=== PATIENT | female | born 1990 | race African-American/Black ===

== ENCOUNTER 2018-11-27 22:56 | Emergency (ER) | payer OTHER ==
[~2018-11-27] VITALS: Ht 154.9 cm; Wt 84.9 kg
[2018-11-28 00:07] VITALS: BP 125/79
== END 2018-11-28 00:14 | disposition home or self-care (01) ==
LOC: ER 23:13
DX: L02.31 Cutaneous abscess of buttock (principal); I10 Essential (primary) hypertension; F17.210 Nicotine dependence, cigarettes, uncomplicated; F12.10 Cannabis abuse, uncomplicated; Z98.890 Other specified postprocedural states
CPT/HCPCS: 99283

== ENCOUNTER 2018-12-01 00:25 | Emergency (ER) | payer MEDICAID, OTHER ==
[~2018-12-01] VITALS: Ht 157.5 cm; Wt 82.0 kg
[2018-12-01] MEDS ORDERED: HYDROCODONE/ACETAMINOPHEN 5/325MG TABLET PO ONE (00:45)
[2018-12-01] MEDS ORDERED: LIDOCAINE HCL/PF 1% 10 MG/ML 5ML VIAL IJ ONE (00:45)
[2018-12-01] MEDS ORDERED: LORAZEPAM 1MG TABLET PO ONE (02:15)
[2018-12-01 04:17] VITALS: BP 134/71
== END 2018-12-01 04:18 | disposition home or self-care (01) ==
LOC: ER 00:57
DX: L02.31 Cutaneous abscess of buttock (principal); F12.10 Cannabis abuse, uncomplicated; F17.200 Nicotine dependence, unspecified, uncomplicated; I10 Essential (primary) hypertension; Z98.890 Other specified postprocedural states
CPT/HCPCS: 10060; 99283; J3490

== ENCOUNTER 2018-12-04 00:37 | Emergency (ER) | payer MEDICAID ==
[~2018-12-04] VITALS: Ht 157.5 cm; Wt 84.0 kg
[2018-12-04 01:54] VITALS: BP 124/87
== END 2018-12-04 02:00 | disposition left against medical advice (07) ==
LOC: ER 00:37
DX: Z53.21 Procedure and treatment not carried out due to patient leaving prior to being seen by health care provider (principal)

== ENCOUNTER 2018-12-04 14:16 | Emergency (ER) | payer OTHER, MEDICAID ==
[~2018-12-04] VITALS: Ht 157.5 cm; Wt 84.0 kg
[2018-12-04 14:36] VITALS: BP 102/77
== END 2018-12-04 15:41 | disposition home or self-care (01) ==
LOC: ER 14:16
DX: Z48.00 Encounter for change or removal of nonsurgical wound dressing (principal)
CPT/HCPCS: 99282

== ENCOUNTER 2021-09-18 19:16 | Emergency (ER) | payer MEDICAID, OTHER ==
[~2021-09-18] VITALS: Ht 160 cm; Wt 76.0 kg
[2021-09-18 21:00] VITALS: BP 122/80
[2021-09-18] MEDS ORDERED: TRAMADOL 50MG TABLET PO ONE (21:00)
[2021-09-18] MEDS ORDERED: IBUPROFEN 600MG TABLET PO ONE (21:00)
== END 2021-09-18 22:09 ==
LOC: ER 19:16
DX: T20.20XA Burn of second degree of head, face, and neck, unspecified site, initial encounter (principal); T21.29XA Burn of second degree of other site of trunk, initial encounter; T22.10XA Burn of first degree of shoulder and upper limb, except wrist and hand, unspecified site, initial encounter; T31.0 Burns involving less than 10% of body surface; X11.8XXA Contact with other hot tap-water, initial encounter; Y93.89 Activity, other specified; Y92.89 Other specified places as the place of occurrence of the external cause; Y99.8 Other external cause status; F12.10 Cannabis abuse, uncomplicated; Z98.890 Other specified postprocedural states
CPT/HCPCS: 16000; 99283